=== PATIENT | female | born 1955 | race Caucasian/White ===

== ENCOUNTER 2021-05-13 13:48 | Inpatient (IN) ==
[2021-05-13] MEDS ORDERED: Warfarin perPT PO PRN (18:00)
[2021-05-13] MEDS: Levalbuterol 1 PUFF INHALER IH SCH (21:25)
[2021-05-13] MEDS: Melatonin 3 MG TABLET PO PRN (22:41)
[2021-05-13] MEDS: Acetaminophen 325 MG TABLET PO PRN (22:41)
[2021-05-13] MEDS: Benzonatate 100 MG CAPSULE PO SCH (22:49)
[2021-05-14] MEDS: Levalbuterol 1 PUFF INHALER IH SCH ×3 (03:50→16:08)
[2021-05-14] MEDS: Ipratropium 1 PUFF INHALER IH PRN ×3 (03:53→16:01)
[2021-05-14 07:50] LABS: Basophils # 0.1 K/mcL (0.0-0.2); Eosinophils # 0.6 K/mcL (0.0-0.6); Eosinophils % 6.8 %; Hematocrit 37.7 % (35.3-44.9); Immature Granulocytes % 0.9 % (0-4); Lymphocytes # 1.6 K/mcL (0.6-4.6); Mean Corpuscular HGB Conc 31.8 g/dL (31.6-35.5); Mean Corpuscular Hemoglobin 29.3 pg (28.0-33.3); Mean Corpuscular Volume 92.2 fL (83.0-100.0); Mean Platelet Volume 10.4 fL (9.4-12.4); Monocytes # 0.6 K/mcL (0.0-1.3); Monocytes % 6.8 %; Neutrophils # 6.2 K/mcL (1.6-8.9); Platelet Count 333 K/mcL (140-400); Red Blood Count 4.09 M/mcL (3.82-4.97); Red Cell Distribution Width 15.4 % (11.5-14.5); Segmented Neutrophils % 67.5 %; White Blood Count 9.2 K/mcL (4.3-11.1)
[2021-05-14 07:57] LABS: INR 2.3; Prothrombin Time 25.4 Seconds (9.4-12.1)
[2021-05-14 08:06] LABS: BUN/Creatinine Ratio 26 (6-26); Blood Urea Nitrogen 17 mg/dL (8-23); Calcium 8.7 mg/dL (8.6-10.3); Carbon Dioxide 36 mEq/L (23-29); Chloride 100 mEq/L (98-107); Glucose 103 mg/dL (70-105); Osmolality,Calculated 298 (280-300); Potassium 3.2 mEq/L (3.5-5.1); Sodium 143 mEq/L (136-145); eGFR For African Americans > 60 (> 60); eGFR For Non-African Americans > 60 (> 60)
[2021-05-14] MEDS: Benzonatate 100 MG CAPSULE PO SCH ×3 (08:45→22:20)
[2021-05-14] MEDS: Acetaminophen 325 MG TABLET PO PRN ×2 (08:52→22:20)
[2021-05-14] MEDS: *HR* LORazepam 0.5 MG TABLET PO PRN ×3 (08:52→22:20)
[2021-05-14] MEDS: *HR* Warfarin 3 MG TABLET PO SCH (17:49)
[2021-05-14] MEDS: Ipratropium 1 PUFF INHALER IH SCH (20:55)
[2021-05-14] MEDS: Melatonin 3 MG TABLET PO PRN (22:20)
[2021-05-15] MEDS: Ipratropium 1 PUFF INHALER IH SCH ×4 (03:22→21:00)
[2021-05-15 07:03] LABS: INR 2.4; Prothrombin Time 27.1 Seconds (9.4-12.1)
[2021-05-15] MEDS: Benzonatate 100 MG CAPSULE PO SCH ×3 (08:42→20:40)
[2021-05-15] MEDS: Acetaminophen 325 MG TABLET PO PRN (08:42)
[2021-05-15] MEDS: *HR* LORazepam 0.5 MG TABLET PO PRN ×3 (08:45→20:40)
[2021-05-15] MEDS: *HR* Warfarin 3 MG TABLET PO SCH (17:17)
[2021-05-15] MEDS: GuaiFENesin/Codeine Oral Soln 5 ML UDC PO PRN (20:40)
[2021-05-15] MEDS: Melatonin 3 MG TABLET PO PRN (20:40)
[2021-05-16] MEDS: Ipratropium 1 PUFF INHALER IH SCH ×4 (03:52→20:59)
[2021-05-16 05:43] LABS: Hematocrit 37.3 % (35.3-44.9); Hemoglobin 11.5 g/dL (11.5-15.4); Mean Corpuscular HGB Conc 30.8 g/dL (31.6-35.5); Mean Corpuscular Hemoglobin 28.5 pg (28.0-33.3); Mean Corpuscular Volume 92.3 fL (83.0-100.0); Mean Platelet Volume 10.9 fL (9.4-12.4); Platelet Count 305 K/mcL (140-400); Red Blood Count 4.04 M/mcL (3.82-4.97); Red Cell Distribution Width 15.2 % (11.5-14.5); White Blood Count 9.8 K/mcL (4.3-11.1)
[2021-05-16 06:04] LABS: Alanine Aminotransferase 22 Units/L (7-52); Albumin 2.9 g/dL (3.5-5.7); Alkaline Phosphatase 68 Units/L (34-104); Aspartate Amino Transferase 19 Units/L (13-39); BUN/Creatinine Ratio 26 (6-26); Bilirubin,Total 0.6 mg/dL (0.3-1.0); Blood Urea Nitrogen 19 mg/dL (8-23); Calcium 8.4 mg/dL (8.6-10.3); Carbon Dioxide 34 mEq/L (23-29); Chloride 99 mEq/L (98-107); Globulin 2.8 g/dL (2.4-3.5); Glucose 100 mg/dL (70-105); Magnesium 2.1 mg/dL (1.6-2.6); Osmolality,Calculated 294 (280-300); Potassium 2.9 mEq/L (3.5-5.1); Sodium 141 mEq/L (136-145); Total Protein 5.7 g/dL (6.4-8.9); eGFR For African Americans > 60 (> 60); eGFR For Non-African Americans > 60 (> 60)
[2021-05-16] MEDS: *HR* LORazepam 0.5 MG TABLET PO PRN ×3 (08:54→20:42)
[2021-05-16] MEDS: Benzonatate 100 MG CAPSULE PO SCH ×3 (08:54→20:42)
[2021-05-16] MEDS: Acetaminophen 325 MG TABLET PO PRN ×2 (08:58→20:42)
[2021-05-16] MEDS: GuaiFENesin/Codeine Oral Soln 5 ML UDC PO PRN ×3 (09:18→20:42)
[2021-05-16] MEDS: *HR* Warfarin 3 MG TABLET PO SCH (17:52)
[2021-05-16] MEDS: Melatonin 3 MG TABLET PO PRN (20:42)
[2021-05-17] MEDS: Ipratropium 1 PUFF INHALER IH SCH ×4 (03:58→20:33)
[2021-05-17 05:53] LABS: INR 2.2; Prothrombin Time 24.1 Seconds (9.4-12.1)
[2021-05-17] MEDS: Benzonatate 100 MG CAPSULE PO SCH ×3 (08:50→21:21)
[2021-05-17] MEDS: GuaiFENesin/Codeine Oral Soln 5 ML UDC PO PRN ×3 (08:55→21:20)
[2021-05-17] MEDS: *HR* LORazepam 0.5 MG TABLET PO PRN ×3 (08:55→21:21)
[2021-05-17] MEDS: Acetaminophen 325 MG TABLET PO PRN ×2 (13:04→21:21)
[2021-05-17] MEDS: *HR* Warfarin 3 MG TABLET PO SCH (17:58)
[2021-05-17] MEDS: Melatonin 3 MG TABLET PO PRN (21:21)
[2021-05-18] MEDS: GuaiFENesin/Codeine Oral Soln 5 ML UDC PO PRN ×4 (02:24→21:41)
[2021-05-18] MEDS: Ipratropium 1 PUFF INHALER IH SCH ×4 (03:26→21:17)
[2021-05-18] MEDS: *HR* LORazepam 0.5 MG TABLET PO PRN ×3 (08:22→21:41)
[2021-05-18] MEDS: Benzonatate 100 MG CAPSULE PO SCH ×3 (08:23→21:41)
[2021-05-18] MEDS: Acetaminophen 325 MG TABLET PO PRN ×2 (08:23→21:41)
[2021-05-18 12:36] LABS: Basophils # 0.1 K/mcL (0.0-0.2); Eosinophils # 0.6 K/mcL (0.0-0.6); Eosinophils % 5.6 %; Hematocrit 42.8 % (35.3-44.9); Hemoglobin 13.1 g/dL (11.5-15.4); Immature Granulocytes % 0.7 % (0-4); Lymphocytes # 1.5 K/mcL (0.6-4.6); Lymphocytes % 13.8 %; Mean Corpuscular HGB Conc 30.6 g/dL (31.6-35.5); Mean Corpuscular Hemoglobin 28.8 pg (28.0-33.3); Mean Corpuscular Volume 94.1 fL (83.0-100.0); Mean Platelet Volume 11.3 fL (9.4-12.4); Monocytes # 0.6 K/mcL (0.0-1.3); Monocytes % 5.9 %; Neutrophils # 7.7 K/mcL (1.6-8.9); Platelet Count 359 K/mcL (140-400); Red Blood Count 4.55 M/mcL (3.82-4.97); Red Cell Distribution Width 15.3 % (11.5-14.5); White Blood Count 10.6 K/mcL (4.3-11.1)
[2021-05-18 12:46] LABS: BUN/Creatinine Ratio 23 (6-26); Blood Urea Nitrogen 17 mg/dL (8-23); Calcium 9.1 mg/dL (8.6-10.3); Carbon Dioxide 34 mEq/L (23-29); Chloride 98 mEq/L (98-107); Glucose 101 mg/dL (70-105); Osmolality,Calculated 290 (280-300); Potassium 3.6 mEq/L (3.5-5.1); Sodium 139 mEq/L (136-145); eGFR For African Americans > 60 (> 60); eGFR For Non-African Americans > 60 (> 60)
[2021-05-18] MEDS: *HR* Warfarin 3 MG TABLET PO SCH (16:47)
[2021-05-18] MEDS: Melatonin 3 MG TABLET PO PRN (21:41)
[2021-05-19] MEDS: Ipratropium 1 PUFF INHALER IH SCH ×4 (03:47→21:14)
[2021-05-19] MEDS: Benzonatate 100 MG CAPSULE PO SCH ×3 (09:44→20:44)
[2021-05-19] MEDS: GuaiFENesin/Codeine Oral Soln 5 ML UDC PO PRN (09:44)
[2021-05-19] MEDS: Acetaminophen 325 MG TABLET PO PRN ×2 (09:44→20:45)
[2021-05-19] MEDS: *HR* LORazepam 0.5 MG TABLET PO PRN ×2 (09:44→17:16)
[2021-05-19] MEDS: *HR* Warfarin 3 MG TABLET PO SCH (17:15)
[2021-05-19] MEDS: HYDROcodone BIT/Homatropine LQ 5 MG/5 ML UDC PO PRN (17:16)
[2021-05-19] MEDS: Melatonin 3 MG TABLET PO PRN (20:44)
[2021-05-20] MEDS: HYDROcodone BIT/Homatropine LQ 5 MG/5 ML UDC PO PRN ×3 (03:02→17:04)
[2021-05-20] MEDS: *HR* LORazepam 0.5 MG TABLET PO PRN ×3 (03:03→17:04)
[2021-05-20] MEDS: Ipratropium 1 PUFF INHALER IH SCH ×4 (04:00→20:21)
[2021-05-20 07:24] LABS: Prothrombin Time 21.9 Seconds (9.4-12.1)
[2021-05-20] MEDS: Benzonatate 100 MG CAPSULE PO SCH ×3 (09:17→20:35)
[2021-05-20] MEDS ORDERED: *HR* Warfarin 5 MG TABLET PO ONE (18:00)
[2021-05-20] MEDS: Melatonin 3 MG TABLET PO PRN (20:35)
[2021-05-20] MEDS: Acetaminophen 325 MG TABLET PO PRN (20:37)
[2021-05-21] MEDS: HYDROcodone BIT/Homatropine LQ 5 MG/5 ML UDC PO PRN ×4 (02:39→20:55)
[2021-05-21] MEDS: *HR* LORazepam 0.5 MG TABLET PO PRN ×4 (02:39→20:54)
[2021-05-21] MEDS: Ipratropium 1 PUFF INHALER IH SCH ×4 (03:13→20:31)
[2021-05-21] MEDS: Benzonatate 100 MG CAPSULE PO SCH ×3 (07:56→20:51)
[2021-05-21] MEDS: Acetaminophen 325 MG TABLET PO PRN ×3 (08:02→20:53)
[2021-05-21] MEDS ORDERED: *HR* Warfarin 3 MG TABLET PO SCH (18:00)
[2021-05-21] MEDS: Melatonin 3 MG TABLET PO PRN (20:51)
[2021-05-22] MEDS: Ipratropium 1 PUFF INHALER IH SCH ×2 (03:17→10:02)
[2021-05-22 05:25] LABS: INR 1.8; Prothrombin Time 20.5 Seconds (9.4-12.1)
[2021-05-22] MEDS: Benzonatate 100 MG CAPSULE PO SCH (07:52)
[2021-05-22] MEDS: Acetaminophen 325 MG TABLET PO PRN (07:52)
[2021-05-22] MEDS: *HR* LORazepam 0.5 MG TABLET PO PRN (07:52)
[2021-05-22] MEDS: HYDROcodone BIT/Homatropine LQ 5 MG/5 ML UDC PO PRN (08:05)
[2021-05-22 10:08] VITALS: RESP 20; O2SAT 90
[2021-05-22 11:42] VITALS: BP 121/78; PULSE 99; TEMP 97.5
[2021-05-22 12:18] LABS: BUN/Creatinine Ratio 19 (6-26); Blood Urea Nitrogen 14 mg/dL (8-23); Carbon Dioxide 34 mEq/L (23-29); Chloride 97 mEq/L (98-107); Glucose 92 mg/dL (70-105); Osmolality,Calculated 290 (280-300); Sodium 140 mEq/L (136-145); eGFR For African Americans > 60 (> 60); eGFR For Non-African Americans > 60 (> 60)
[2021-05-22] MEDS ORDERED: *HR* Warfarin 5 MG TABLET PO ONE (18:00)
== END 2021-05-22 12:15 | disposition home health service (06) | DRG 177 ==
LOC: INPGRE 19:39
PROVIDERS: ADMIT Family Medicine; ATTEND Family Medicine